=== PATIENT | female | born 1980 | race American Indian/Alaskan Native ===

== ENCOUNTER 2021-12-14 16:03 | Emergency (ER) | payer SELFPAY ==
[2021-12-14 17:00] VITALS: BP 131/76
[2021-12-14] MEDS ORDERED: HYDROcodone/ACETAMINOPHEN 10-325MG TAB PO ONE (17:54)
[2021-12-14] MEDS ORDERED: ONDANSETRON 4 MG ODT TAB PO ONE (17:54)
--- NOTE | 2021-12-14 17:54 | Emergency Department Report ---
ED Female HPI - General Chief complaint: Abdominal Pain Stated complaint: VAGINAL PAIN/BLEEDING/VOMITING Time Seen by Provider: 12/14/21 17:35 Source: patient Mode of arrival: Ambulatory Limitations: No Limitations - History of Present Illness Initial comments: 41-year-old female presents to the ER today with complaints of low abdominal/pelvic pain. Patient states that her pain started suddenly around 12 1 PM today while she was laying down. She states that soon after the pain started she started with vaginal bleeding which is unusual for her. She states that her last normal menstrual cycle was 2 weeks ago. She states that the bleeding today was similar to for period. She is changed to tampons so far since the bleeding started. She also reports associated nausea, vomiting, lightheaded and dizziness. She is not currently on any control. She denies any UTI symptoms, diarrhea, fever or chills. She denies any abdominal pelvic surgeries in the past. She is G5, P4 Ab1. MD Complaint: vaginal bleeding, pelvic pain, other (vomiting ) -: Sudden, This afternoon - Related Data Previous Rx's Medication Instructions Recorded Last Taken Type Ondansetron [Zofran Odt] 4 mg PO Q8HR PRN #15 tab.rapdis 12/14/21 Unknown Rx Allergies Allergy/AdvReac Type Severity Reaction Status Date / Time No Known Allergies Allergy Verified 12/14/21 17:30 ED Review of Systems ROS: Stated complaint: VAGINAL PAIN/BLEEDING/VOMITING Other details as noted in HPI Comment: All other systems reviewed and negative Constitutional: denies: chills, fever Eyes: denies: eye pain, eye discharge, vision change ENT: denies: ear pain, throat pain Respiratory: denies: cough, shortness of breath, SOB with exertion, SOB at rest, wheezing Gastrointestinal: abdominal pain. denies: nausea, vomiting, diarrhea, constipation, hematemesis, melena, hematochezia Genitourinary: denies: urgency, dysuria, frequency, hematuria, discharge, abnormal menses, dyspareunia Musculoskeletal: denies: back pain, joint swelling, arthralgia, myalgia Skin: denies: rash, lesions, change in color, change in hair/nails, pruritus Neurological: denies: headache, weakness, numbness, paresthesias, confusion, abnormal gait, vertigo Psychiatric: denies: anxiety, depression, auditory hallucinations, visual hallucinations, homicidal thoughts, suicidal thoughts Hematological/Lymphatic: denies: easy bleeding, easy bruising, swollen glands ED Past Medical Hx - Past Medical History Previous Medical History?: No - Surgical History Past Surgical History?: No - Social History Smoking Status: Never Smoker - Medications Home Medications: Home Medications Medication Instructions Recorded Confirmed Last Taken Type Ondansetron [Zofran Odt] 4 mg PO Q8HR PRN #15 tab.rapdis 12/14/21 Unknown Rx ED Physical Exam - General Limitations: No Limitations General appearance: alert, in no apparent distress - Head Head exam: Present: atraumatic, normocephalic, normal inspection - Eye Eye exam: Present: normal appearance, PERRL, EOMI Pupils: Present: normal accommodation - Respiratory Respiratory exam: Absent: respiratory distress - Cardiovascular Cardiovascular Exam: Present: regular rate, normal rhythm, normal heart sounds - GI/Abdominal GI/Abdominal exam: Present: soft, tenderness (Left lower quadrant). Absent: distended, guarding, rebound - Neurological Exam Neurological exam: Present: alert, oriented X3, CN II-XII intact, normal gait - Psychiatric Psychiatric exam: Present: normal affect, normal mood - Skin Skin exam: Present: intact ED Course Vital Signs 12/14/21 16:39 Temperature 98.9 F Pulse Rate 82 Respiratory 18 Rate Blood Pressure 131/76 O2 Sat by Pulse 100 Oximetry ED Medical Decision Making - Lab Data Result diagrams: 12/14/21 18:17 12/14/21 18:17 - Radiology Data Radiology results: report reviewed Patient: EUSEBIA PURI MR#: [id number] : 1980 Acct:[id number] Age/Sex: 41 / F ADM Date: 12/14/21 Loc: ED Attending Dr: Ordering Physician: YRIS BLANCAS Date of Service: 12/14/21 Procedure(s): US OB transvaginal Accession Number(s): [id number] cc: YRIS BLANCAS Transvaginal OB ultrasound INDICATION: Pelvic pain FINDINGS: Ovaries are normal in size and appearance. No renal mass. Normal blood flow. Uterus measures 7.5 x 5.0 x 6.2 cm. Endometrium 7 mm. Small amount of fluid is seen surrounding the left ovary. Quantitative hCG is 3136 IMPRESSION: No intrauterine is identified. Quantitative hCG is elevated. Ectopic is not seen however not completely excluded given HCG levels. Endometrium is thickened measuring 7 mm. Close follow-up examination and workup recommended. Signer Name: Jr Payton MD Signed: 12/14/2021 8:43 PM Workstation Name: [id number] Transcribed By: DAREN Dictated By: ELIGIO PAYTON MD Electronically Authenticated By: ELIGIO PAYTON MD Signed Date/Time: 12/14/212042 DD/ 40 TD/TT: - Medical Decision Making labs reviewed--CBC shows mild leukocytosis with a white count of 12 but otherwise unremarkable. CMP shows no significant abnormality. Quant hCG measures 3136; ED Rh shows that she is O+ therefore no indication for RhoGam at this time. OB ultrasound showed No intrauterine is identified. Quantitative hCG is elevated. Ectopic is not seen however not completely excluded given HCG levels. Endometrium is thickened measuring 7 mm. Close follow-up examination and workup recommended. Patient is resting comfortably on recliner. She reports improvement of her pain after meds given here in the ER. She reports no worsening bleeding since she came to the ER. She is not toxic or ill-appearing. Her vital signs are stable. Discussed results with patient, given unclear location of the , I informed patient that it is important for her to return to the ER in 2 days for repeat quant and ultrasound but but I also stressed to her the importance of returning sooner if at any point her pain worsens in any way. Patient expressed understanding agree with plan. Patient stable at time of discharge. Critical care attestation.: If time is entered above; I have spent that time in minutes in the direct care of this critically ill patient, excluding procedure time. ED Disposition Clinical Impression: Threatened miscarriage in early Disposition: 01 HOME / SELF CARE / HOMELESS Is pt being admited?: No Does the pt Need Aspirin: No Condition: Stable Instructions: Abdominal Pain (ED) Additional Instructions: I recommend that you return to the ER in the next 48 hours for repeat quantitative hCG and ultrasound. If at any point your pain worsens or bleeding get significantly worse return sooner to the ER. In the meantime you can take Tylenol for pain and take Zofran to help with nausea and vomiting. Recommend rest and fluids. Prescriptions: Ondansetron [Zofran Odt] 4 mg PO Q8HR PRN #15 tab.rapdis PRN Reason: Vomiting Referrals: PRIMARY CARE, [Primary Care Provider] - 3-5 Days [facility] [Provider Group] - 3-5 Days Forms: Work/School Release Form(ED) Time of Disposition: 20:52
[2021-12-14 18:38] LABS: Bacteria,Urine 1+ /HPF (Negative); Bilirubin,Urine NEG (Negative); Blood,Urine SM (Negative); Color,Urine Yellow (Yellow); Mucus,Urine 3+ /HPF; Urobilinogen,Urine < 2.0 mg/dL (<2.0)
[2021-12-14 18:47] LABS: Hematocrit 36.8 % (30.3-42.9); Hemoglobin 11.8 gm/dl (10.1-14.3); Mean Corpuscular HGB Conc 32 % (30-34); Mean Corpuscular Volume 88 fl (79-97); Platelet Count 344 K/mm3 (140-440); Red Blood Count 4.17 M/mm3 (3.65-5.03); Red Cell Distribution Width 14.8 % (13.2-15.2)
[2021-12-14 19:05] LABS: Albumin 4.8 g/dL (3.9-5); Blood Urea Nitrogen 10 mg/dL (7-17); Calcium 9.7 mg/dL (8.4-10.2); Hemolysis Index 12
[2021-12-14 19:20] LABS: Alanine Aminotransferase < 5 units/L (7-56); BUN/Creatinine Ratio 20
--- NOTE | 2021-12-14 20:47 | Ultrasound Report ---
Transvaginal OB ultrasound INDICATION: Pelvic pain FINDINGS: Ovaries are normal in size and appearance. No renal mass. Normal blood flow. Uterus measure s 7.5 x 5.0 x 6.2 cm. Endometrium 7 mm. Small amount of fluid is seen surrounding the left ovary. Nick ntitative hCG is 3136 IMPRESSION: No intrauterine is identified. Quantitative hCG is elevated. Ectopic is not seen however not completely excluded given HCG levels. Endometrium is thickened measuring 7 mm. Close foll ow-up examination and workup recommended. Signer Name: Jr Payton MD Signed: 12/14/2021 8:43 PM Workstation Name: [id number]
[2021-12-14 21:39] LABS: Basophils % (Manual) 0 % (0.0-1.8); Eosinophils % (Manual) 0 % (0.0-4.3); Total Cells Counted 100
[2021-12-14 21:48] LABS: Large Platelets Few; RBC Morphology Normal
[2021-12-14 21:49] LABS: Platelet Estimate Appears Increased
== END 2021-12-14 21:07 | disposition home or self-care (01) ==
LOC: ED 16:03
DX: O20.0 Threatened abortion (principal); Z3A.00 Weeks of gestation of pregnancy not specified
CPT/HCPCS: 36415; 76817; 80053; 81001; 84702; 84703; 85007; 85025; 86900; 86901; 99284; J3490; Q0162